=== PATIENT | male | born 2005 | race Caucasian/White ===

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

== ENCOUNTER 2024-07-20 11:39 | Emergency (ER) | payer BC ==
[2024-07-20] MEDS: PROPARACAINE 0.5% OPHTH DROPS 15 ML BTL LEFT EYE STA (11:53)
[2024-07-20] MEDS: FLUORESCEIN STRIPS 1 MG STRIP LEFT EYE ONE (11:53)
--- NOTE | 2024-07-20 12:13 | ED ---
Eye Problem HPI - General Chief complaint: Eye Problems Stated complaint: L eye issue Time Seen by Provider: 07/20/24 11:44 Source: patient Mode of arrival: ambulatory Limitations: no limitations - History of Present Illness Initial comments: 19-year-old male presenting with chief complaint of left eye irritation. States that yesterday he was cleaning some dirt out of an area and he thinks that the dirt may have blown up behind his safety glasses and into his eye. He tried rinsing the eye out at work and felt a bit better. Today he is having irritat ion and foreign body sensation. No vision loss or changes. He does not wear contact lenses. No discharge from the eye. - Related Data Previous Rx's Medication Instructions Recorded Ciprofloxacin Ophth Soln [Cipro 2 drops LEFT EYE QID 5 Days #5 ml 07/20/24 0.3% Ophth Soln] Allergies Allergy/AdvReac Type Severity Reaction Status Date / Time peanut [Peanut Butter] Allergy Nausea & Verified 07/20/24 11:42 Vomiting & Diarrhea Review of Systems ROS Statement: Those systems with pertinent positive or pertinent negative responses have been documented in the HPI. ROS Other: All systems not noted in ROS Statement are negative. Past Medical History Past Medical History: No Reported History History of Any Multi-Drug Resistant Organisms: None Reported Past Surgical History: No Surgical Hx Reported Past Psychological History: No Psychological Hx Reported Smoking Status: Never smoker Past Alcohol Use History: None Reported Past Drug Use History: None Reported General Exam Limitations: no limitations General appearance: alert, in no apparent distress Head exam: Present: atraumatic, normocephalic, normal inspection Eye exam: Present: normal appearance, PERRL, EOMI. Absent: periorbital swelling, periorbital tenderness Neck exam: Present: normal inspection. Absent: meningismus Respiratory exam: Absent: respiratory distress Extremities exam: Present: normal inspection Neurological exam: Present: alert, oriented X3 Psychiatric exam: Present: normal affect, normal mood Skin exam: Present: warm, dry, normal color Course Vital Signs 07/20/24 11:40 Temperature 97.8 F Pulse Rate 103 H Respiratory 18 Rate Blood Pressure 153/88 O2 Sat by Pulse 100 Oximetry Medical Decision Making - Medical Decision Making Was pt. sent in by a medical professional or institution (, PA, SUPERVISOR INSTRUMENT MAINTENANCE, urgent care, hospital, or [facility]...) When possible be specific @ -No Did you speak to anyone other than the patient for history (EMS, parent, family, police, friend...)? What history was obtained from this source @ -No Did you review nursing and triage notes (agree or disagree)? Why? @ -I reviewed and agree with nursing and triage notes Were old charts reviewed (outside hosp., previous admission, EMS record, old EKG, old radiological studies, urgent care reports/EKG's, [facility] records)? Report findings @ -No old charts were reviewed Differential Diagnosis (chest pain, altered mental status, abdominal pain women, abdominal pain men, vaginal bleeding, weakness, fever, dyspnea, syncope, headache, dizziness, GI bleed, back pain, seizure, CVA, palpatations, mental health, musculoskeletal)? @ -Differential includes foreign body, corneal abrasion, corneal ulcer, conjunctivitis, not an all-inclusive list EKG interpreted by me (3pts min.). @ -As above X-rays interpreted by me (1pt min.). @ -None done CT interpreted by me (1pt min.). @ -None done U/S interpreted by me (1pt. min.). @ -None done What testing was considered but not performed or refused? (CT, X-rays, U/S, labs)? Why? @ -None What meds were considered but not given or refused? Why? @ -None Did you discuss the management of the patient with other professionals (professionals i.e. , PA, SUPERVISOR [employer]INTENANCE, lab, RT, psych nurse, protective services social worker, administrative dietitian, teacher, airfield engineer officer, child support case officer)? Give summary @ -No Was smoking cessation discussed for >3mins.? @ -No Was critical care preformed (if so, how long)? @ -No Were there social determinants of health that impacted care today? How? (Homelessness, low income, unemployed, alcoholism, drug addiction, transportation, low edu. Level, literacy, decrease access to med. care, fpc, rehab)? @ -No Was there de-escalation of care discussed even if they declined (Discuss DNR or withdrawal of care, Hospice)? DNR status @ -No What co-morbidities impacted this encounter? (DM, HTN, Smoking, COPD, CAD, Cancer, CVA, ARF, Chemo, Hep., AIDS, mental health diagnosis, sleep apnea, morbid obesity)? @ -None Was patient admitted / discharged? Hospital course, mention meds given and route, prescriptions, significant lab abnormalities, going to OR and other pertinent info. @ -19-year-old male presenting with chief complaint of left eye irritation. Thinks that he may have gotten some dirt in it yesterday. He did rinse the eye out yesterday and was having some improvement but today has continued irritation. He does not wear contact lenses. Fluorescein staining is performed, possible small area of uptake. Patient does have relief with application of the proparacaine drops. No evidence of foreign body seen on examination or eyelid eversion. Patient will be started on Cipro eyedrops and ketorolac eyedrops. Follow-up with PCP. Report back to ER with any new or worsening symptoms. Discussed return parameters and answered all questions. Patient conveyed verbal understanding and agreed to the plan. My attending is Dr. Bae Undiagnosed new problem with uncertain prognosis? @ -No Drug Therapy requiring intensive monitoring for toxicity (Heparin, Nitro, Insulin, Cardizem)? @ -No Were any procedures done? @ -No Diagnosis/symptom? @ -Corneal abrasion Acute, or Chronic, or Acute on Chronic? @ -Acute Uncomplicated (without systemic symptoms) or Complicated (systemic symptoms)? @ -Uncomplicated Side effects of treatment? @ -No Exacerbation, Progression, or Severe Exacerbation? @ -No Poses a threat to life or bodily function? How? (Chest pain, [place], [place], pneumonia, PE, COPD, DKA, ARF, appy, cholecystitis, CVA, Diverticulitis, Homicidal, Suicidal, threat to staff... and all critical care pts) @ -Unlikely Disposition Clinical Impression: Corneal abrasion Disposition: HOME SELF-CARE Condition: Good Instructions (If sedation given, give patient instructions): Corneal Abrasion (ED) Additional Instructions: Follow-up with PCP, suggestions provided. Report back to ER with any new or worsening symptoms. Apply 2 Cipro eyedrops to the affected eye 4 times daily for 5 days to prevent infection Apply 1 ketorolac eyedrop to the affected eye up to 3 times a day as needed for pain Prescriptions: Ciprofloxacin Ophth Soln [Cipro 0.3% Ophth Soln] 2 drops LEFT EYE QID 5 Days #5 ml Is patient prescribed a controlled substance at d/c from ED?: No Referrals: None,Stated [Primary Care Provider] - 1-2 days Forms: Area PCPs Time of Disposition: 12:13
[2024-07-20] MEDS: KETOROLAC 0.5% OPHTH DROPS 5 ML BTL LEFT EYE STA (12:35)
[2024-07-20] MEDS: CIPROFLOXACIN 0.3% OPHTH SOLN 5 ML BTL LEFT EYE STA (12:36)
[2024-07-20 12:40] VITALS: BP 148/80; PULSE 96; RESP 20; TEMP 98
== END 2024-07-20 13:28 | disposition home or self-care (01) ==
LOC: EC 11:39
DX: T15.02XA Foreign body in cornea, left eye, initial encounter (principal); Z91.010 Allergy to peanuts; W26.8XXA Contact with other sharp object(s), not elsewhere classified, initial encounter
CPT/HCPCS: 65220; 99283